=== PATIENT | female | born 1970 | race Caucasian/White ===

== ENCOUNTER 2016-05-13 11:26 | Emergency (ER) | payer OTHER ==
[2016-05-13 11:50] VITALS: RESP 20; TEMP 97.5
[2016-05-13] MEDS ORDERED: KETOROLAC 60 MG/2 ML VIAL IM STA (13:05)
--- NOTE | 2016-05-13 13:39 | XR ---
EXAMINATION TYPE: XR foot complete LT DATE OF EXAM: 05/13/2016 1:16 PM CLINICAL HISTORY: pain TECHNIQUE: Frontal, lateral and oblique images of the left foot are obtained. COMPARISON: None. FINDINGS: There is no acute fracture/dislocation evident. The joint spaces appear within normal chang its. The overlying soft tissue appears unremarkable. IMPRESSION: There is no acute fracture or dislocation. ICD 10 NO FRACTURE, INITIAL EVALUATION
--- NOTE | 2016-05-13 14:00 | ED ---
General Adult HPI - General Chief complaint: Extremity Injury, Lower Stated complaint: LT foot pain Time Seen by Provider: 05/13/16 11:56 Source: patient Mode of arrival: wheelchair Limitations: no limitations - History of Present Illness Initial comments: 45-year-old obese female presented for evaluation of left foot pain since yesterday morning. She states she woke up and when she stepped out of bed she had pain that radiated across the bottom of her foot up into her calf. She states that this is the leg that she uses depends on for most of her ambulation and activity as he of the legs had multiple surgeries and knee replacements. She denies any trauma and states that the night before she had no pain to the foot. There is no discoloration or bruising as she states she has normal sensation and motor function. Her primary concern is a blood clot in her foot as she has a history of Sjogren's disease. - Related Data Home Medications Medication Instructions Recorded Confirmed Aspirin 81 mg PO DAILY 02/08/14 05/13/16 Albuterol Sulfate [Ventolin HFA] 1 puff INHALATION RT-Q6H PRN 04/25/14 05/13/16 Cholecalciferol [Vitamin D3] 1,000 unit PO DAILY 12/20/14 05/13/16 [place]-3 Fatty Acids/Fish Oil [Fish 1 cap PO DAILY 12/20/14 05/13/16 Oil 1,000 mg Softgel] Artificial Tears-Hypromellose 1 drops BOTH EYES DAILY PRN 05/13/16 05/13/16 [Artificial Tear Drops] Beclomethasone Dipropionate [Qvar 1 puff INHALATION RT-BID 05/13/16 05/13/16 40 mcg] Fluticasone Nasal Traver [Flonase 1 spray EA NOSTRIL DAILY 05/13/16 05/13/16 Nasal Traver] Ibuprofen [Motrin] 200 - 400 mg PO Q6HR PRN 05/13/16 05/13/16 Lidocaine HCl [Aspercreme] 1 applic TOPICAL DAILY PRN 05/13/16 05/13/16 Omeprazole [PriLOSEC] 20 mg PO DAILY 05/13/16 05/13/16 Previous Rx's Medication Instructions Recorded HYDROcodone/APAP 5-325MG [[place] 1 - 2 tab PO Q6HR PRN #14 tab 05/13/16 5-325] Ibuprofen [Motrin] 800 mg PO Q8HR PRN #20 tab 05/13/16 Allergies Allergy/AdvReac Type Severity Reaction Status Date / Time meperidine HCl [From Demerol] Allergy Unknown Verified 05/13/16 12:15 sulfamethoxazole AdvReac Rash/Hives Verified 05/13/16 12:15 [From Bactrim] trimethoprim [From Bactrim] AdvReac Rash/Hives Verified 05/13/16 12:15 Review of Systems ROS Statement: Those systems with pertinent positive or pertinent negative responses have been documented in the HPI. General: Patient denies fever, chills,nausea, or vomiting. HEENT: No visual changes. No eye pain. No nasal symptoms. No dysphagia.No odynophagia. No ENT pain. Cardiac: No chest pain. No palpitations. Pulmonary; No dyspnea. Negative cough GI: No abdominal pain. No diarrhea. No constipation. No bowel habit changes. No melena. No hematochezia. See general. : No dysuria.No hematuria. No hesitancy. No urgency. No renal lithiasis history. Musculoskeletal: No musculoskeletal pain. Positive left plantar foot pain Orthopedic: Denies fracture history. Integumentary: Denies rash. Denies pruritis. Neurologic: Denies any lateralizing weakness. Denies numbness. Denies tingling. No seizure activity. Denies TIA or CVA. ROS Other: All systems not noted in ROS Statement are negative. Past Medical History Past Medical History: Asthma, Fibromyalgia Additional Past Medical History / Comment(s): allergies/chograns History of Any Multi-Drug Resistant Organisms: None Reported Past Surgical History: Hysterectomy, Joint Replacement Past Psychological History: No Psychological Hx Reported Smoking Status: Never smoker Past Alcohol Use History: None Reported Past Drug Use History: None Reported General Exam - General Exam Comments Initial Comments: General: The patient is awake and alert, in no distress, and does not appear acutely ill. Eye: Pupils are equal, round and reactive to light, extra-ocular movements are intact; there is normal conjunctiva bilaterally. No signs of icterus. Ears, nose, mouth and throat: There are moist mucous membranes and no oral lesions. Neck: The neck is supple, there is no tenderness or JVD. Cardiovascular: There is a regular rate and rhythm. No murmur, rub or gallop is appreciated. Respiratory: Lungs are clear to auscultation, respirations are non-labored, breath sounds are equal. No wheezes, stridor, rales, or rhonchi. Gastrointestinal: Soft, non-distended, non-tender abdomen without masses or organomegaly noted. There is no rebound or guarding present. No CVA tenderness. Bowel sounds are unremarkable. Back: There is no tenderness to palpation in the midline. There is no obvious deformity. No rashes noted. Musculoskeletal: Normal ROM, There is no pedal edema. Positive plantar surface foot pain on the left with dorsiflexion of the foot. Sensation intact. Pulses equal bilaterally 2+. Neurological: CN II-XII intact, There are no obvious motor or sensory deficits. Coordination appears grossly intact. Speech is normal. Skin: Skin is warm and dry and no rashes or lesions are noted. Psychiatric: Cooperative, appropriate mood & affect, normal judgment. Limitations: no limitations Course Vital Signs 05/13/16 05/13/16 11:46 14:11 Temperature 97.5 F L 97.5 F L Pulse Rate 77 85 Respiratory 20 20 Rate Blood Pressure 133/76 145/68 O2 Sat by Pulse 99 Oximetry Medical Decision Making - Medical Decision Making 45-year-old female presenting for evaluation of left plantar foot pain since yesterday when she woke up. There is no pain when she went to bed and she denies any traumatic etiology for her symptoms. She states a concern for a blood clot as she has Sjogren syndrome. Physical examination reveals a tender plantar surface of the foot without any skin changes, erythema, or bruising. There is strong pulses to the foot with good color, warmth, and neurovascularly intact. X-ray of the left foot revealed no acute abnormality and she had improvement in pain with the Toradol IM injection. Presentation is consistent with plantar fasciitis and she was informed of this. She is a further educated that a blood clot that far into her foot would not be a complication leading to a clinically significant pulmonary embolism. She was advised to follow with her orthopedic surgeon or primary care physician and return to this facility if her symptoms should worsen or persist. She acknowledged an understanding of this information and agreed with this plan of care. Disposition Clinical Impression: Acute pain of left foot Disposition: HOME SELF-CARE Condition: Stable Instructions: Foot Fracture in Adults (ED), Plantar Fasciitis (ED) Additional Instructions: Please use medication as discussed. Please follow up with family doctor if symptoms have not improved over the next two days. Please return to the emergency room if your symptoms increase or worsen or for any other concerns. Prescriptions: HYDROcodone/APAP 5-325MG [[place] 5-325] 1 - 2 tab PO Q6HR PRN #14 tab PRN Reason: Analgesia Ibuprofen [Motrin] 800 mg PO Q8HR PRN #20 tab PRN Reason: Analgesia Referrals: Bob Onofre MD [Primary Care Provider] - 1-2 days Time of Disposition: 14:00
[2016-05-13 14:11] VITALS: BP 145/68; PULSE 85
== END 2016-05-13 14:10 | disposition home or self-care (01) ==
LOC: EC 11:26
DX: M79.672 Pain in left foot (principal); J45.909 Unspecified asthma, uncomplicated; E66.9 Obesity, unspecified; M79.7 Fibromyalgia; Z79.82 Long term (current) use of aspirin; Z79.899 Other long term (current) drug therapy; Z79.51 Long term (current) use of inhaled steroids; Z88.1 Allergy status to other antibiotic agents; Z88.5 Allergy status to narcotic agent; Z88.2 Allergy status to sulfonamides; M35.00 Sjogren syndrome, unspecified; Z68.43 Body mass index [BMI] 50.0-59.9, adult
CPT/HCPCS: 73630; 96372; 99283; J1885

== ENCOUNTER → 2016-08-15 | Outpatient (CLI) | payer OTHER ==
--- NOTE | 2016-08-15 08:27 | CT ---
EXAMINATION TYPE: CT pelvis w con DATE OF EXAM: 08/15/2016 8:01 AM COMPARISON: CT abdomen pelvis 12/20/2014 HISTORY: Mass of obturator foramen CT DLP: 2097 mGycm Automated exposure control for dose reduction was used. CONTRAST: Performed with IV Contrast, patient injected with 100 mL of Omnipaque 300. FINDINGS: Inferior portions of the liver and spleen within the [id number] are normal. Gallbladder is surgica lly absent. The adrenal glands are normal. Kidneys appear without evidence of masses or cysts. There is some mild right hydronephrosis and mild right hydroureter. This extends to the right ureterovesica l junction. There is a punctate density at the right ureterovesical junction. A very tiny stone may b e present. Periumbilical hernia containing mesenteric fat is present. This has some slight increased density. In carcerated fact be considered. There is a slightly larger a periumbilical hernia inferior to the firs t note is made of an air-filled appendix. Loops of bowel within the abdomen distended with oral contr ast normal. Fecal debris is within the colon. CT PELVIS: Aorta and inferior vena cava within the [id number] are normal. Urinary bladder is unrem arkable. Uterus is absent. Adnexal regions are clear. No free fluid is within the pelvis. Obturator canals appear normal. Muscular signal within the buttocks is unremarkable. Perirectal fat i s unremarkable. Reconstructed images are unremarkable. Osseous structures appear within normal limits. Some sacroiliac joint degenerative changes noted. Deg enerative disc changes L5-S1 is present. IMPRESSION: 1. MILD RIGHT HYDRONEPHROSIS AND HYDROURETER. 2. PERIUMBILICAL FAT-CONTAINING HERNIAS. THE MORE SUPERIOR AND SMALLER OF THE 2 MAY BE INCARCERATED. 3. NO OBTURATOR CANAL MASSES ARE EVIDENT.
== END | disposition home or self-care (01) ==
LOC: RADCTMAIN 07:23
PROVIDERS: ATTEND Internal Medicine
DX: N13.30 Unspecified hydronephrosis (principal); K42.9 Umbilical hernia without obstruction or gangrene
CPT/HCPCS: 72193; Q9967

== ENCOUNTER → 2016-10-18 | Outpatient (CLI) | payer OTHER ==
--- NOTE | 2016-10-18 16:50 | US ---
EXAMINATION TYPE: US kidneys/renal and bladder DATE OF EXAM: 10/18/2016 COMPARISON: NONE CLINICAL HISTORY: Hx of hydronephrosis 93.4. EXAM MEASUREMENTS: Right Kidney: 10.8 x 4.8 x 4.7 cm Left Kidney: 11.6 x 5.3 x 4.3 cm Right Kidney: No hydronephrosis or masses seen Left Kidney: No hydronephrosis or masses seen Bladder: Not fully distended. Bilateral Jets seen: Yes Both kidneys are morphologically normal. The bladder is unremarkable but not distended. Both ureteral jets were seen. IMPRESSION: NORMAL RENAL ULTRASOUND.
== END | disposition home or self-care (01) ==
LOC: RADUSWWP 12:55
PROVIDERS: ATTEND Urology
DX: N20.1 Calculus of ureter (principal); N13.30 Unspecified hydronephrosis
CPT/HCPCS: 76770

== ENCOUNTER → 2016-12-02 | Outpatient (CLI) | payer OTHER ==
--- NOTE | 2016-12-02 14:03 | XR ---
EXAMINATION TYPE: XR chest 2V DATE OF EXAM: 12/02/2016 COMPARISON: 07/01/2011 INDICATION: Presurgical clearance TECHNIQUE: Frontal and lateral views of the chest are obtained. FINDINGS: The heart size is normal. The pulmonary vasculature is normal. The lungs are clear. IMPRESSION: 1. No acute pulmonary process.
== END | disposition home or self-care (01) ==
LOC: RADXRMAIN 13:36
PROVIDERS: ATTEND Internal Medicine
DX: Z01.818 Encounter for other preprocedural examination (principal)
CPT/HCPCS: 71020

== ENCOUNTER → 2016-12-14 | Outpatient (CLI) | payer OTHER ==
[2016-12-14 13:32] VITALS: BP 146/88; PULSE 87; RESP 16; TEMP 98.6; BMI 48.2
== END | disposition home or self-care (01) ==
LOC: BARWHC3 12:52
PROVIDERS: ATTEND Surgery Plastic and Reconstructive Surgery
DX: Z01.818 Encounter for other preprocedural examination (principal); E66.01 Morbid (severe) obesity due to excess calories; E89.1 Postprocedural hypoinsulinemia; D50.8 Other iron deficiency anemias; E44.0 Moderate protein-calorie malnutrition; E55.9 Vitamin D deficiency, unspecified; I11.9 Hypertensive heart disease without heart failure; G47.30 Sleep apnea, unspecified; Z68.42 Body mass index [BMI] 45.0-49.9, adult
CPT/HCPCS: 99211

== ENCOUNTER → 2017-06-02 | Outpatient (CLI) | payer OTHER ==
[2017-06-02 10:23] LABS: Basophils # (A) 0.1 k/uL (0-0.2); Basophils % (A) 1 %; Eosinophils # (A) 0.3 k/uL (0-0.7); Eosinophils % (A) 3 %; HCT 39.3 % (34.0-46.0); HGB 13.2 gm/dL (11.4-16.0); Lymphocytes # (A) 2.7 k/uL (1.0-4.8); Lymphocytes % (A) 35 %; MCH 27.9 pg (25.0-35.0); MCHC 33.6 g/dL (31.0-37.0); Mean Platelet Volume 7.8; Monocytes # (A) 0.5 k/uL (0-1.0); Monocytes % (A) 6 %; Neutrophils # (A) 4.1 k/uL (1.3-7.7); Neutrophils % (A) 53 %; Platelet Count 329 k/uL (150-450); RBC 4.73 m/uL (3.80-5.40); RDW 14.5 % (11.5-15.5); WBC 7.7 k/uL (3.8-10.6)
[2017-06-02 10:38] LABS: ALT 33 U/L (9-52); AST 23 U/L (14-36); Albumin 4.4 g/dL (3.5-5.0); Alkaline Phosphatase 81 U/L (38-126); Anion Gap 14 mmol/L; Blood Urea Nitrogen 12 mg/dL (7-17); Calcium 10.2 mg/dL (8.4-10.2); Carbon Dioxide 23 mmol/L (22-30); Chloride 105 mmol/L (98-107); Cholesterol 258 mg/dL (<200); Glucose 97 mg/dL (74-99); HDL Cholesterol 55 mg/dL (40-60); LDL Cholesterol,Calculated 156 mg/dL (0-99); Potassium 4.4 mmol/L (3.5-5.1); Sodium 142 mmol/L (137-145); Total Bilirubin 0.4 mg/dL (0.2-1.3); Total Protein 7.6 g/dL (6.3-8.2); Triglycerides 234 mg/dL (<150)
== END | disposition home or self-care (01) ==
LOC: LABWHC1 09:42
PROVIDERS: ATTEND Internal Medicine
DX: Z00.00 Encounter for general adult medical examination without abnormal findings (principal)
CPT/HCPCS: 36415; 80053; 80061; 82306; 84443; 85025

== ENCOUNTER → 2017-07-10 | Outpatient (CLI) | payer OTHER ==
--- NOTE | 2017-07-10 15:39 | XR ---
EXAMINATION TYPE: XR pelvis AP view, XR bone length study DATE OF EXAM: 07/10/2017 COMPARISON: NONE HISTORY: Leg length discrepancy and prosthesis. TECHNIQUE: Single pelvic radiograph and frontal views of the bilateral tibia, fibula, and femurs were obtained. FINDINGS: The left tibial length measures 35.2 cm. Unfortunately the right tibial length is an estima donna as the ruler is obscured by the patient's prosthesis. Counting began at 2 cm presumed to be the t ibiotalar joint of the prosthesis. Estimation of length is 39 cm. The patient could be brought back f or additional views. The right femur length is also obscured but estimated to be 43 cm the left femoral length of 42 cm. On the pelvic radiograph the left femur is noted to be elevated in comparison to the right at least 1 .5 cm. Osseous structures are intact with only minimal degenerative change of the femoral acetabular joints. IMPRESSION: 1. Unfortunately the right leg length is an estimation as the rulers obscured by the patient's prosth esis. The patient could be brought back for additional views to add to this current study. 2. On the pelvic radiograph the left femoral head is noted to be approximately 1.5 cm cephalad to the right.
--- NOTE | 2017-07-10 15:58 | XR ---
EXAMINATION TYPE: XR lumbosacral spine min 4V DATE OF EXAM: 07/10/2017 CLINICAL HISTORY: Leg length discrepancy and back pain TECHNIQUE: Frontal, lateral, and oblique images of the lumbar spine are obtained. COMPARISON: None FINDINGS: There are 5 lumbar type vertebral bodies identified. The lumbar spine shows satisfactory alignment without evidence of acute fracture or dislocation. Vertebral body heights are maintained. Mild multilevel degenerative changes of the thoracolumbar spine as visualized are displayed as small anterior osteophytes and facet arthropathy. Minimal neural foraminal narrowing is seen at L4-L5 bilat erally. Otherwise the oblique images appear within normal limits. Cholecystectomy clips are noted wit hin the right upper quadrant. There is a very mild scoliotic curvature of the lower lumbar spine. The overlying soft tissue appears unremarkable. IMPRESSION: 1. No acute fracture or malalignment is seen in the lumbar spine. 2. Mild multilevel degenerative disc disease resulting in radiographic mild neural foraminal narrowin g at L4-L5 bilaterally.
== END | disposition home or self-care (01) ==
LOC: RADXRMAIN 14:03
PROVIDERS: ATTEND Orthopaedic Surgery
DX: M51.36 Other intervertebral disc degeneration, lumbar region (principal); M99.73 Connective tissue and disc stenosis of intervertebral foramina of lumbar region; M21.70 Unequal limb length (acquired), unspecified site
CPT/HCPCS: 72110; 72170; 77073

== ENCOUNTER → 2020-08-11 | Outpatient (CLI) | payer OTHER | END | disposition home or self-care (01) | LOC: LABWHC1 16:44 | PROVIDERS: ATTEND Family Medicine | DX: U07.1 COVID-19 (principal) | CPT/HCPCS: U0003; C9803 ==

== ENCOUNTER → 2022-03-16 | Outpatient (CLI) | payer OTHER ==
--- NOTE | 2022-03-16 12:28 | XR ---
EXAMINATION TYPE: XR chest 2V DATE OF EXAM: 03/16/2022 12:14 PM COMPARISON: Chest radiographs from 12/02/2016 TECHNIQUE: XR chest 2V Frontal and lateral views of the chest. CLINICAL INDICATION:Female, 51 years old with history of R22.2 Left chest mass; FINDINGS: Lungs/Pleura: There is no evidence of pleural effusion, focal consolidation, or pneumothorax. 5 mm r ight mid and lower lung pulmonary nodule. [place] to be visualized on prior CT in 2014. Pulmonary vascularity: Unremarkable. Heart/mediastinum: Cardiomediastinal silhouette is unremarkable. Musculoskeletal: No acute osseous pathology. IMPRESSION: 1. No definitive left chest Mass. Consider CT imaging for complete evaluation of the chest. No recen t priors. 2. Right lower midlung pulmonary nodule measuring 5 mm and may have been on prior in 2014.
== END | disposition home or self-care (01) ==
LOC: RADXRMAIN 11:59
PROVIDERS: ATTEND Nurse Practitioner Family
DX: R91.1 Solitary pulmonary nodule (principal)
CPT/HCPCS: 71046

== ENCOUNTER → 2022-04-06 | Outpatient (CLI) | payer OTHER ==
[2022-04-06 18:44] LABS: Basophils # (A) 0.04 X 10*3/uL (0.00-0.10); Basophils % (A) 0.6 %; Eosinophils # (A) 0.23 X 10*3/uL (0.04-0.35); Eosinophils % (A) 3.4 %; HCT 42.4 % (37.2-46.3); HGB 13.5 g/dL (12.0-15.0); Immature Grans, Automated 0.4 %; Lymphocytes # (A) 2.48 X 10*3/uL (0.90-5.00); MCH 27.7 pg (27.0-32.0); MCHC 31.8 g/dL (32.0-37.0); MCV 86.9 fL (80.0-97.0); Mean Platelet Volume 10.6 fL (9.5-12.2); Monocytes # (A) 0.68 X 10*3/uL (0.20-1.00); Monocytes % (A) 10.1 %; NRBC Per 100 WBC 0 /100 WBCS (0.0-0.0); Neutrophils # (A) 3.25 X 10*3/uL (1.80-7.70); Neutrophils % (A) 48.5 %; Platelet Count 343 X 10*3/uL (140-440); RBC 4.88 X 10*6/uL (4.10-5.20); RDW 13.3 % (11.5-14.5); WBC 6.71 X 10*3/uL (4.50-10.00)
[2022-04-06 19:16] LABS: BUN/Creat Ratio 10.03 Ratio (12.00-20.00); Globulin 2.7 g/dL (1.6-3.3)
[2022-04-06 19:17] LABS: African American GFR (CKD) 100.3 (60.0-200.0); Albumin 4.6 g/dL (3.8-4.9); Albumin/Globulin Ratio 1.7 (1.60-3.17); Anion Gap 11.2 mmol/L (10.00-18.00); Blood Urea Nitrogen 7.8 mg/dL (9.0-27.0); Calcium 9.9 mg/dL (8.7-10.3); Carbon Dioxide 25.9 mmol/L (20.0-27.5); Non-African American GFR(CKD) 86.5 (60.0-200.0); Potassium 4.4 mmol/L (3.5-5.5); Total Bilirubin 0.2 mg/dL (0.30-1.20); Total Protein 7.3 g/dL (6.2-8.2)
== END | disposition home or self-care (01) ==
LOC: LABWHC1 11:58
PROVIDERS: ATTEND Nurse Practitioner Family
DX: R91.1 Solitary pulmonary nodule (principal); R07.9 Chest pain, unspecified
CPT/HCPCS: 36415; 80053; 84484; 85025; 85379

== ENCOUNTER → 2022-04-29 | Outpatient (CLI) | payer OTHER ==
--- NOTE | 2022-04-29 22:16 | CT ---
EXAMINATION TYPE: CT chest wo/w con CT DLP: 1361.4 mGycm, Automated exposure control for dose reduction was used. DATE OF EXAM: 04/29/2022 6:44 PM COMPARISON: CT 07/05/2010 CLINICAL INDICATION:Female, 51 years old with history of R91.8 OTHER NONSPECIFIC ABNORMAL FINDING OF LUNG F, Nonspecific abnormal finding of lung. Cough/chest pain. TECHNIQUE: Multiple axial images were obtained through the chest. Sagittal and coronal reformats were created for review with and without contrast was performed. Contrast used:100cc mL of Isovue 300 with IV Contrast Oral contrast used: none. FINDINGS: LUNGS/ PLEURA: Right lower lung 11 mm pulmonary nodule similar dating back to 2010. AIRWAY: Patent and unremarkable. HEART: Size within normal limits. MEDIASTINUM: No gross evidence of adenopathy. Layering ingested contents and a dilated esophagus. VASCULATURE: No aortic aneurysm. MUSCULOSKELETAL: No acute osseous abnormalities SOFT TISSUES/LYMPH NODES: Unremarkable. LOWER NECK: No significant findings. UPPER ABDOMEN: Diffuse low-attenuation to the liver parenchyma. The gallbladder surgically absent. IMPRESSION: 1. Right lower lobe pulmonary nodule with calcification similar dating back to 2010. This is favored to be a benign etiology. 2. Hepatic steatosis. 3. Dilated esophagus with layering debris correlate for aspiration and/or esophageal dysmotility.
== END | disposition home or self-care (01) ==
LOC: RADCTMAIN 18:14
PROVIDERS: ATTEND Family Medicine
DX: K76.0 Fatty (change of) liver, not elsewhere classified (principal); K22.89 Other specified disease of esophagus; R91.8 Other nonspecific abnormal finding of lung field
CPT/HCPCS: 71270; Q9967

== ENCOUNTER → 2022-05-28 | Outpatient (CLI) | payer OTHER ==
--- NOTE | 2022-05-28 19:22 | XR ---
EXAMINATION TYPE: XR pelvis AP view DATE OF EXAM: 05/28/2022 3:05 PM INDICATION: Patient age:Female; 51 years old; Reason for study: M21.70 R52; COMPARISON: 07/10/2017 TECHNIQUE: The pelvis was examined in a single projection. FINDINGS: Standing radiograph demonstrates the left femoral head approximately 3.7 centimeters higher than the right side. There is no evidence of fracture or dislocation. There is no soft tissue abnorm ality. No abnormal calcifications are present. Multilevel degenerative changes of the lower spine. IMPRESSION: 1. No acute osseous pathology. 2. The left femoral head is 3.7 cm superior compared to the right.
== END | disposition home or self-care (01) ==
LOC: RADXRMAIN 14:26
DX: R10.2 Pelvic and perineal pain (principal); M21.70 Unequal limb length (acquired), unspecified site
CPT/HCPCS: 72170